=== PATIENT | female | born 1985 | race Asian ===

== ENCOUNTER 2021-12-02 10:49 | Outpatient (CLI) | payer OTHER, SELFPAY ==
[2021-12-09 09:27] LABS: Red Blood Cell Count 3.84
== END 2021-12-02 10:50 | disposition home or self-care (01) ==
PROVIDERS: PCP Nurse Practitioner Family
DX: O36.1920 Maternal care for other isoimmunization, second trimester, not applicable or unspecified (principal); Z3A.30 30 weeks gestation of pregnancy
CPT/HCPCS: 36415; 83021; 85660; 86870; 86886; 86900; 86901; 86905

== ENCOUNTER 2021-12-21 10:00 | Outpatient (RCR) | payer OTHER, SELFPAY | END 2022-03-21 23:59 | disposition home or self-care (01) | LOC: ANHLAB 10:00 | PROVIDERS: PCP Nurse Practitioner Family; Visit Provider Nurse Practitioner Family | DX: O99.891 Other specified diseases and conditions complicating pregnancy (principal); R76.0 Raised antibody titer; Z3A.30 30 weeks gestation of pregnancy | CPT/HCPCS: 36415; 86850; 86880; 86902 ==

== ENCOUNTER 2022-01-16 13:13 | Outpatient (CLI) | payer OTHER, SELFPAY | END 2022-01-16 13:14 | disposition home or self-care (01) | PROVIDERS: PCP Nurse Practitioner Family | DX: R76.0 Raised antibody titer (principal); Z3A.36 36 weeks gestation of pregnancy | CPT/HCPCS: 36415; 86850; 86870; 86880; 86886; 86900; 86901; 86902 ==

== ENCOUNTER 2022-01-28 09:42 | Inpatient (IN) | payer OTHER, SELFPAY ==
[2022-01-28] VITALS (101 sets, daily range): BP systolic 81–165; BP diastolic 39–104; PULSE 63–236; TEMP 36.4–36.8; O2SAT 96–100; BMI 27.5
--- NOTE | 2022-01-28 13:04 | LDADM ---
This patient, Mary Holder, was admitted to Labor/Delivery/Recovery 107 on 01/28/22 at 09:42. Plans for labor, pain management and were discussed with patient. Patient/family oriented to hospital policies and general routines including ID bracelet, bed and alarms, visiting hours, pain management, procedures, bathroom and other care routines, personal items, smoking policy, room service/diet and guest tray routines, infant security routines, and visiting hours. Patient/Family are encouraged to report perceived risks to care and to ask questions if they do not understand what they are told or what they should do. See OBIX for further documentation.
[2022-01-28 13:32] LABS: Basophils Absolute Auto 0.1 K/mm3 (0.0-0.1); Basophils Percent Auto 0.4 % (0.2-1.2); Eosinophils Absolute Auto 0.1 K/mm3 (0-0.3); Eosinophils Percent Auto 0.5 % (0-4.4); Hematocrit 32.3 % (37.0-47.0); Hemoglobin 9.6 g/dL (12.0-15.0); Immature Granulocyte Absolute 0.14 K/mm3 (0.00-0.031); Immature Granulocyte Percent A 1.2 % (0-0.5); Lymphocytes Percent Auto 12.4 % (18.3-44.2); Mean Corpuscular HGB Conc 29.7 g/dl (32-36); Mean Corpuscular Hemoglobin 24.2 pg (26-34); Mean Corpuscular Volume 81.6 fl (80-100); Mean Platelet Volume 10.5 fl (7.4-10.4); Monocytes Absolute Auto 0.7 K/mm3 (0.1-0.6); Monocytes Percent Auto 5.7 % (2.6-8.5); Neutrophils Absolute Auto 9.7 K/mm3 (1.3-6.7); Neutrophils Percent Auto 79.8 % (45.5-73.1); Nucleated Red Blood Cells Perc 0.2 % (0.0-0.2); Platelet Count Result 283 k/mm3 (150-375); Red Blood Count 3.96 M/mm3 (4.2-5.4); Red Cell Distribution Width 18.5 % (11.5-14.5); White Blood Count 12.1 K/mm3 (4.5-10.0)
--- NOTE | 2022-01-28 16:04 | PM.IMHP ---
H&P: HPI History of Present Illness Date/Time: 01/28/22 16:04 Chief Complaint: Spotting Narrative: Pt is a at 38 weeks by LMP 05/05/21 with an EDC 02/09/22 consistent with 11 week ultrasound. She presented to L and D with complaints of spotting this am and ? leaking at 0930, continued to have some mild leaking and spotting. She did have + ROM plus on L and D, though blood present and cervix 4cm. Frequent contractions. She was having contractions. She was admitted for labor. PNC significant for advanced maternal age, anti-M isoimmunization, mild polyhydramnios. The antiM antibody was low positive throughout . She had reassuring tracing throughout . Labs reviewed. GBS neg. Review of Systems Review of Systems: All systems reviewed & are unremarkable except as noted in HPI and below Constitutional: Constitutional: Reports no additional constitutional complaints and Denies headache(s) Eyes: Eyes: Denies spots in vision ENT: Reports system reviewed and no additional complaints, except as documented and Denies headache(s) Cardiovascular: Cardiovascular: Denies chest pain and Denies dyspnea Respiratory: Respiratory: Denies dyspnea Gastrointestinal: Gastrointestinal: Reports no additional gastrointestinal complaints Genitourinary: Genitourinary: Reports amenorrhea Musculoskeletal: Musculoskeletal: Reports no additional musculoskeletal complaints Integumentary/Breasts: Skin/Breast: Denies breast mass and Denies rash Neurologic: Denies headache(s) Psychiatric: Psychiatric: Reports no additional psychiatric complaints [facility] Past Medical History Medical History PHILL (iron deficiency anemia) Vegetarian diet Vitamin D deficiency (~11/2020) Family History Family History Father Diabetes mellitus Social History Social History Social History: , 2 children ages 8 and 5. She and her run 2 businesses in town. Smoking status: Never smoker Alcohol intake: never Substance use: never Lack of Transportation: No Lack of Food: Never True Current Housing: I Have Housing Concerned About Future Housing: No Difficulty Paying Gas/Electric Bills: No Difficulty Paying for Meds: No Currently Unemployed: No Education: Bachelor's Degree Difficulty w/ Childcare or Family Care: No Gender identity (if verbalized by the patient): Female Sexual Orientation (if Verbalized by the Patient): Straight or Heterosexual Spiritual care concerns: No Agree to blood products: Yes Meds Home Medications and Allergies Home Medications Medication Instructions Recorded Confirmed Type vits 75-iron 28 mg-folic pkg PO 07/08/21 01/21/22 History acid 800 mcg-omega-3 oral combo pack (One A Day Women's DHA) ferrous sulfate 325 mg (65 mg 325 mg PO BID #180 tabs 11/06/21 01/28/22 Rx iron) tablet,delayed release Allergies Allergy/AdvReac Type Severity Reaction Status Date / Time No Known Allergies Allergy Verified 01/21/22 14:25 Vital Signs Vital Signs - 24 hr 01/28/22 11:15 01/28/22 11:30 01/28/22 11:45 Temperature Pulse Rate 104 H 94 90 Blood Pressure 116/88 118/81 121/78 Oxygen Delivery 01/28/22 12:00 01/28/22 12:15 01/28/22 12:30 Temperature Pulse Rate 95 93 81 Blood Pressure 128/90 127/84 118/82 Oxygen Delivery 01/28/22 12:46 01/28/22 13:15 01/28/22 13:30 Temperature Pulse Rate 86 86 82 Blood Pressure 134/77 138/83 129/88 Oxygen Delivery 01/28/22 13:45 01/28/22 14:00 01/28/22 14:30 Temperature 98 F Pulse Rate 102 H 80 87 Blood Pressure 132/90 130/86 130/89 Oxygen Delivery 01/28/22 15:00 01/28/22 15:30 01/28/22 16:00 Temperature Pulse Rate 87 84 101 H Blood Pressure 123/87 133/81 123/95 H Oxygen Delivery
--- NOTE | 2022-01-28 16:06 | PM.OBPNLAB ---
Pain Control Date/time seen: 01/28/22 16:06 Comments: FHT 130 cat 1, ctx irregular, cervix 2. AROM forebag, clear. Continue expectant management.
[2022-01-28] MEDS: LACTATED RINGERS 1,000 ML 125 ML IV CONT ×3 (17:03→19:13)
[2022-01-28] MEDS: OXYTOCIN 30 UNITS/NS 500 ML 30 UNITS/500 ML BAG IV CONT (19:08)
--- NOTE | 2022-01-28 22:32 | PM.OBPRVD ---
OB - Delivery Note Procedure Delivery date: 01/28/22 Procedure: Spontaneous vaginal delivery Events: Polyhydramnios and Other (amto-M alloimmunization) Delivery augmentation: Pitocin Delivery monitor: External FHT Route of delivery: Laceration Description: Perineal - 2nd Degree and Vaginal Delivery repair: vicryl (3.0 vicryl) Specimen: Yes (Placenta and cord) Quantitative Blood Loss (ml): 300 Anesthesia type: Epidural Disposition: Floor Complications: None [place] Baby Date of : 01/28/22 Weeks of gestation at delivery: 38 Infant gender: Male presentation: vertex Placenta delivery description: Spontaneous score five minutes: 9 score ten minutes: 9
[2022-01-29] VITALS (16 sets, daily range): BP systolic 116–140; BP diastolic 70–87; PULSE 79–93; RESP 16–20; TEMP 36.4–37.6; O2SAT 95–99
--- NOTE | 2022-01-29 00:53 | OBPPTRN ---
Patient transferred to post room #286 via W/C. Support person present. Oriented to unit, room, information board, rooming in, admission packet and security measures. Patient verbalizes understanding.
[2022-01-29 05:04] LABS: Hemoglobin 8.1 g/dL (12.0-15.0)
--- NOTE | 2022-01-29 07:46 | WPDANLDPN2 ---
Anes-Prog Note L&D Date/Time: 01/29/22 07:46 Comfortable throughout: labor and delivery Neuraxial method: epidural Epidural/Spinal procedure site: clean & non-tender Neuro status: Neuro function grossly intact. Cardiovascular status: normal Respiratory status: normal Airway patency: baseline Mental status: baseline Post-Op hydration status: normal Vital Signs: Last Vital Signs Temp 98.2 F 01/29/22 05:05 Pulse 81 01/29/22 05:05 Resp 20 01/29/22 05:05 BP 121/85 01/29/22 05:05 Pulse Ox 98 01/29/22 05:05 O2 Del Method Room Air 01/29/22 01:00 Pain score (VAS): 0/10 I/O: Intake & Output 01/28/22 01/28/22 01/29/22 15:59 23:59 07:59 Intake Total 2000 Output Total 300 Balance 1700 Post-procedural complaints: none Patient feedback: Patient satisfied with anesthetic care.
[2022-01-29] MEDS: MULTIVIT/MIN/PREN/FOL AC/IRON TABLET 1 TAB PO (08:17)
[2022-01-29] MEDS: DOCUSATE SODIUM 100 MG CAPSULE PO ×2 (08:19→15:55)
[2022-01-29] MEDS: ACETAMINOPHEN 325 MG TABLET 650 MG PO (08:19)
[2022-01-29] MEDS: FERROUS SULFATE 324 MG TABLET (09:00)
--- NOTE | 2022-01-29 11:28 | PC.NURSE ---
Addendum entered by Karlene Welsh RN 01/29/22 11:32: Mother is pumping without pain and the flange fit is appropriate. Original Note: Introductions were made, then consulted with patient to assess needs related to . Mother is pumping now. Mother plans to bottle feed until her milk comes in, then she will latch her to her breast. Mother states she attempted was made to latch infant last night and the wouldn't take it . Mother did this plan with her other two children for about 2.5 months and this is her plan with this as well. Resources provided for inpatient and outpatient services using a resource guide and mom/baby guide. Mother voiced understanding of information and will call if there is a request for assistance. Reported to primary RN.
--- NOTE | 2022-01-29 13:41 | PHAR ---
The patient's home med of SlowFe Iron 137MG (45MG ELEMENTAL IRON) has been verified.
--- NOTE | 2022-01-29 14:12 | PM.OBPNVD ---
OB - PN: Subj Subjective Date/time seen: 01/29/22 14:12 Patient comments: pain well controlled, tolerating diet and other (Decreasing lochia.) [place] baby status: doing well and nursing well OB - PN: Obj Data Labs CBC & Chem 7: 01/29/22 04:57 Labs: Laboratory Results - last 24 hr 01/28/22 01/28/22 01/29/22 13:00 13:00 04:57 WBC 12.1 H RBC 3.96 L Hgb 9.6 L 8.1 L Hct 32.3 L 27.0 L MCV 81.6 MCH 24.2 L MCHC 29.7 L RDW 18.5 H Plt Count 283 MPV 10.5 H Immature Gran % (Auto) 1.2 H Neut % (Auto) 79.8 H Lymph % (Auto) 12.4 L [place] % (Auto) 5.7 Eos % (Auto) 0.5 Baso % (Auto) 0.4 Lymph # (Auto) 1.50 [place] # (Auto) 0.7 H Eos # (Auto) 0.1 Baso # (Auto) 0.1 Abs Immat Gran (auto) 0.14 H Absolute Neuts (auto) 9.7 H Absolute Nucleated RBC 0.0 Nucleated RBC % 0.2 Blood Type O Positive Antibody Screen Positive Antibody Identification Inconclusive Antigen Identification Cancelled JANETT, IgG Interpret Not Performed JANETT, Poly Interpret Negative JANETT, Complement Interp Not Performed OB - PN A/P Plan day: 1 Plan: routine care Comments: Patient doing well. Time Spent With Patient Time: Total time spent is greater than 50% in coordination of care (as documented) at patient's floor/unit and/or counseling patient: Exam Psych: Affect: normal affect Other: Abd: fundus firm below umbilicus, nontender Perineum: healing Ext: nontender
[2022-01-29] MEDS: IBUPROFEN 600 MG TABLET PO ×2 (15:59→23:12)
[2022-01-29 17:06] LABS: Rapid Plasma Reagin Non-Reactive (NonReactive)
[2022-01-30 07:30] VITALS: BP 125/75; PULSE 68; RESP 18; TEMP 36.8; O2SAT 99
[2022-01-30] MEDS: DOCUSATE SODIUM 100 MG CAPSULE PO (08:20)
[2022-01-30] MEDS: IBUPROFEN 600 MG TABLET PO (08:21)
[2022-01-30] MEDS: MULTIVIT/MIN/PREN/FOL AC/IRON TABLET 1 TAB PO (08:21)
--- NOTE | 2022-01-30 10:47 | PM.OBPNVD ---
OB - PN: Subj Subjective Date/time seen: 01/30/22 10:47 Doing well this AM. Denies significant pain or cramping. Minimal lochia. Ambulating without difficulty. Voiding well. OB - PN: Obj Data Labs CBC & Chem 7: 01/29/22 04:57 Labs: Laboratory Results - last 24 hr 01/28/22 01/28/22 13:00 13:00 RPR Non-reactive Blood Type O Positive Antibody Screen Positive Antibody Identification Inconclusive Antigen Identification Cancelled JANETT, Poly Interpret Negative Enhanced Crossmatch See Detail OB - PN A/P Assessment and Plan (1) Normal spontaneous vaginal delivery: Code(s): O80 - Encounter for full-term uncomplicated delivery Status: Acute Assessment and Plan: PPD#2 doing well continue routine care dc home today in stable condition emergency precautions reviewed f/u in office in 4-6 weeks for visit Time Spent With Patient Time: Total time spent is greater than 50% in coordination of care (as documented) at patient's floor/unit and/or counseling patient: Review of Systems Review of Systems: All systems reviewed & are unremarkable except as noted in HPI and below Exam Const: General: cooperative, healthy appearing, comfortable and no acute distress GI: Inspection: non-distended GI Palp: Yes Soft to palpation and No Tenderness to palpation present (GI) Other: fundus firm below umbilicus Extrem: Right lower extremity: no edema Left lower extremity: no edema Other: no calf tenderness
--- NOTE | 2022-01-30 10:50 | PM.OBDSVD ---
DS: Admitting Diagnosis Discharge Date 01/30/22 Admitting Diagnosis IUP at 38w Labor DS: Discharge Diagnosis Discharge Diagnosis (1) Normal spontaneous vaginal delivery: Code(s): O80 - Encounter for full-term uncomplicated delivery Status: Acute OB - DS: Summary OB Procedures : None OB Procedures Intrapartum: Spontaneous Vag Delivery OB Procedures: : None Time Spent with Patient Time attestation: Total time spent providing and/or coordinating discharge services: DS: Data Data Completed and Pending Pending studies at discharge: Pending at discharge 01/28/22 22:02 Surgical [PTH] Routine Labs on day of discharge: Labs from last 24 hours 01/28/22 01/28/22 13:00 13:00 RPR Non-reactive Blood Type O Positive Antibody Screen Positive Antibody Identification Inconclusive Antigen Identification Cancelled JANETT, Poly Interpret Negative Enhanced Crossmatch See Detail Discharge Plan Discharge Attending physician on discharge: Cha Navarro Discharging Clinician: Cha Navarro Anticipated Discharge Date/Time: 01/30/22 10:53 Patient Disposition: Home, Self-Care Activity: pelvic rest Diet: regular Discharge Instructions: Call office ([phone]) to schedule a visit in 4-6 weeks. You may take Ibuprofen 600mg every 6 hours as needed for pain. Pain medication may make you constipated. It may be helpful to take an [id number] stool softener, such as Colace and/or Senokot, along with the pain medication to help lessen constipation. Call office or go to ED for pain not controlled with medication, headache, chest pain, shortness of breath, fever, chills, persistent nausea or vomiting, severe abdominal pain, heavy vaginal bleeding >2 pads/hour, foul vaginal discharge or odor, or problems with your breasts. Patient Instructions: Antibiotic Form Stand Alone Forms: General Discharge Information Follow-up/Referrals: Angel Phan MD [Physician] - Discharge Medications: Continued One A Day Women's DHA 28 mg iron- 800 mcg combo pack PO ferrous sulfate 325 mg (65 mg iron) tablet,delayed release (DR/EC) 325 mg PO BID Qty: 180 1RF Date of admission: 01/28/22 09:42 Primary Care Provider: Sonia Weiner Admitting Provider: Angel Phan Attending physician on admission: Angel Phan Condition: Stable
--- NOTE | 2022-01-30 11:00 | PC.NURSE ---
Patient viewed the discharge video Mother & Baby Care, The First Two Weeks . Patient was given the opportunity and encouraged to ask questions. Patient verbalized understanding of information shared and has been given the mother/baby guide for home reference.
[2022-02-01 11:22] VITALS: BP 117/79; PULSE 91; RESP 18; TEMP 36.4; O2SAT 99
== END 2022-01-30 14:00 | disposition home or self-care (01) | DRG 560 ==
LOC: ANHLDR 12:50 → ANHOB2 01-29 08:30 → ANHLDR 02-01 11:39 → ANHOB2 02-01 11:39
PROVIDERS: Admitting Provider Obstetrics & Gynecology; PCP Nurse Practitioner Family; Visit Provider Student in an Organized Health Care Education/Training Program
DX: O42.02 Full-term premature rupture of membranes, onset of labor within 24 hours of rupture (principal); Z37.0 Single live birth; Z3A.38 38 weeks gestation of pregnancy; O40.3XX0 Polyhydramnios, third trimester, not applicable or unspecified; O36.1930 Maternal care for other isoimmunization, third trimester, not applicable or unspecified; O36.8330 Maternal care for abnormalities of the fetal heart rate or rhythm, third trimester, not applicable or unspecified; O69.81X0 Labor and delivery complicated by cord around neck, without compression, not applicable or unspecified
CPT/HCPCS: 36415; 85014; 85018; 85025; 86592; 86850; 86880; 86900; 86901; 86902; 86922; 88307; A9270; J2590; J2795; J7120

== ENCOUNTER 2024-03-28 14:45 | Emergency (ER) | payer BC, MEDICAID, SELFPAY ==
--- NOTE | 2024-03-28 14:48 | ED_ITS ---
HPI - URI/Sore Throat General Chief Complaint: Upper Respiratory Infection Stated Complaint: SORE THROAT Time Seen by Provider: 03/28/24 15:06 Source: patient and RN notes reviewed Mode of arrival: ambulatory Limitations: no limitations History of Present Illness HPI Narrative: 38-year-old female presents with concern day history of cough sore throat. Reports cough keeps her awake at night. She denies nasal congestion or rhinorrhea. MD elicited complaint: cough and sore throat Related Data Home Medications ?Medication ?Instructions ?Recorded ?Confirmed ?Last Taken ?Type ferrous sulfate 325 mg (65 mg 325 mg PO DAILY 01/18/24 03/28/24 Unknown History iron) tablet,delayed release Allergies Allergy/AdvReac Type Severity Reaction Status Date / Time No Known Allergies Allergy Verified 03/28/24 14:52 Review of Systems Review of Systems: CONSTITUTIONAL: Denies malaise, chills, sweats, or fever. EYES: Denies visual changes, redness, or discharge. ENT: Denies rhinorrhea, congestion, sinus pain, otalgia. Reports sore throat. CARDIOVASCULAR: Denies chest pain, palpitations, or edema. RESPIRATORY: Reports cough. Denies dyspnea. GASTROINTESTINAL: Denies abdominal pain, nausea, vomiting, diarrhea SKIN: Denies rash or itching. MUSCULOSKELETAL: Denies myalgia. NEUROLOGIC: Denies headache. All systems reviewed & are unremarkable except as noted in HPI and below PMFSH Past Medical History Medical History Folic acid deficiency PHILL (iron deficiency anemia) Vegetarian diet Vitamin D deficiency (~11/2020) Surgical History Surgical History Normal spontaneous vaginal delivery x3 - 12/12, 08/03, 02/09 Family History Family History Father Diabetes mellitus Social History Social History Social History: , 2 children ages 8 and 5. She and her run 2 businesses in town. Smoking status: Never smoker Alcohol intake: never Substance use: never Lack of Transportation: No Lack of Food: Never True Current Housing: I Have Housing Concerned About Future Housing: No Difficulty Paying Gas/Electric Bills: No Difficulty Paying for Meds: No Currently Unemployed: No Education: Bachelor's Degree Difficulty w/ Childcare or Family Care: No Living arrangements: with family Occupation/Education: unemployed Gender identity (if verbalized by the patient): Female Sexual Orientation (if Verbalized by the Patient): Straight or Heterosexual Spiritual care concerns: No Agree to blood products: Yes Comments At time of signature, agree with nursing past medical, surgical, social and family history. There is no relevant family history pertinent to the presenting complaint Exam Narrative: GENERAL: Well-appearing, well-nourished, and in no acute distress. HEAD: Normocephalic EYES: PERRLA, conjunctivae clear ENT: Nares clear. Mucous membranes moist. TM pearly turner with dull light reflex bilaterally; no tragal tenderness. Oropharynx not erythematous without lesions. Tonsils not enlarged and without exudate, no drooling, no hoarseness, no trismus, uvula midline. NECK: Supple. No lymphadenopathy CHEST: Clear to auscultation, breath sounds equal. No wheezing, rhonchi, rales, or stridor. No respiratory distress, speaks in full sentences. HEART: Regular rate and rhythm. No murmur heard. SKIN: Warm, dry, no rash. NEURO: Alert and oriented x3. PSYCH: Normal mood and affect Course Course Emergency Course: Patient is aware of diagnosis, understands and agrees to treatment plan. Anticipatory guidance given. Patient agrees to follow-up as directed and is aware of reasons to seek care at the emergency department. Portions of this record may have been created with voice recognition software Level of Care: Express Care Visit Vital Signs Vital signs: Reviewed. MDM - URI/Sore Throat MDM Narrative Medical decision making narrative: Differential diagnosis considered: Poe virus, strep pharyngitis, allergic rhinitis, upper respiratory tract infection, sinusitis, rhinosinusitis, nasopharyngitis. viral pharyngitis, otitis media, otitis externa, pneumonia, bronchitis, viral cough syndrome, viral syndrome, and influenza. Exam findings show no acute concerns or changes; patient is non-toxic appearing and is in no distress. Patient is appropriate for outpatient treatment and follow-up. Lab Data Attestation: I reviewed the patient's lab results. Critical Care Time Critical Care Time Critical Care Time: No Discharge Plan Discharge Clinical Impression: Bronchitis Patient Disposition: Home, Self-Care Condition: Stable Instructions: Acute Bronchitis (ED) Additional Instructions: Viral illness may last between 7-21 days; antibiotics do not cure viral illness and are NOT recommended at this time. Recommend antihistamine such as Benadryl at night time and Zyrtec or Kylie during the day Cough syrup may cause drowsiness; avoid driving or take it at night time. Also, recommend symptomatic treatment includes: rest, fluids, and increase humidity of the air at home. Recommend Acetaminophen as directed on the bottle to reduce fever, pain, headache. Avoid smoking/second-hand smoke. Please schedule a follow-up visit with your personal physician for further evaluation and treatment within 3-5days. Including recheck and discussion of your blood pressure. If your symptoms persist, change or worsen significantly before you can contact your personal physician then please, without delay, go to the emergency department for further evaluation. Patient Language: Welsh Prescriptions: New promethazine-DM 6.25-15 mg/5 mL syrup 5 ml PO Q4-6H PRN (Reason: cough) Qty: 120 0RF methylprednisolone [Medrol (Selvin)] 4 mg tablets,dose pack See Rx Instructions .ROUTE .COMPLEX Qty: 21 0RF Rx Instructions: orally per package directions No Action ferrous sulfate 325 mg (65 mg iron) tablet,delayed release (DR/EC) 325 mg PO DAILY folic acid 1 mg tablet 1 mg PO DAILY Qty: 90 1RF cholecalciferol (vitamin D3) 1,250 mcg (50,000 unit) tablet 1,250 mcg PO WEEKLY Qty: 12 2RF Follow-up/Referrals: Laurel Mooney MD [Primary Care Provider] - Time of Disposition: 15:15
[2024-03-28 14:58] VITALS: BP 95/73; PULSE 109; RESP 16; TEMP 36.7; O2SAT 98
[2024-03-28 15:06] LABS: EDSTREPNEGPOS1 Negative (Negative)
== END 2024-03-28 15:18 | disposition home or self-care (01) ==
PROVIDERS: Emergency Provider Nurse Practitioner; PCP Family Medicine
DX: J40 Bronchitis, not specified as acute or chronic (principal)
CPT/HCPCS: 87081; 87880; 99213; G0463